=== PATIENT | female | born 1995 | race African-American/Black ===

== ENCOUNTER 2018-01-10 09:18 | Emergency (ER) | payer OTHER ==
[~2018-01-10] VITALS: Ht 160 cm; Wt 90.7 kg
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
[2018-01-10 10:04] VITALS: BP 137/89
[2018-01-10] MEDS ORDERED: ORPHENADRINE CITRATE 60 MG/2 ML VIAL. IM ONE (10:15)
[2018-01-10] MEDS ORDERED: KETOROLAC 60 MG/2 ML INJ. IM ONE (10:15)
[2018-01-10 10:35] LABS: BILIRUBIN,URINE NEGATIVE (NEG); CLARITY,URINE CLOUDY; COLOR,URINE YELLOW; NITRITE,URINE NEGATIVE (NEG); PROTEIN,URINE NEGATIVE (NEG-TRACE); UROBILINOGEN,URINE 0.2 mg/dL (0.2 mg/dL)
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
[2018-01-10] MEDS ORDERED: IBUP-1060 PO (10:49)
[2018-01-10] MEDS ORDERED: CYCL5TAB PO (10:49)
[2018-01-10 10:50] LABS: BACTERIA,URINE FEW /HPF (0-FEW); RBC,URINE RARE /HPF (0-2); SQUAMOUS EPITHELIAL CELL,UR FEW /LPF; WBC,URINE RARE /HPF (0-4)
== END 2018-01-10 11:15 | disposition home or self-care (01) ==
LOC: ER 09:18
DX: R07.89 Other chest pain (principal); V43.52XA Car driver injured in collision with other type car in traffic accident, initial encounter; Y93.89 Activity, other specified; Y92.488 Other paved roadways as the place of occurrence of the external cause; Y99.8 Other external cause status
CPT/HCPCS: 71046; 81001; 81025; 96372; 99285; J1885; J2360